=== PATIENT | female | born 1955 | race Caucasian/White ===

== ENCOUNTER → 2022-08-14 | Outpatient (CLI) | payer MEDICARE ==
[~2022-08-14] MED LIST: PRED20 PO
[2022-08-14 09:38] LABS: Source, Urine Clean Catch
[2022-08-14 12:12] LABS: Appearance, Urine Clear (Clear); Blood, Urine Neg (Neg); Glucose Qualitative, Urine Neg (Neg); Ketones, Urine Neg (Neg); Leukocyte Esterase, Urine 2+ (Neg); Nitrite, Urine Pos (Neg); Protein, Urine 1+ (Neg); Specific Gravity, Urine 1.015 (1.003-1.022); Urobilinogen, Urine 3+ (Normal); pH, Urine 6.5 (5.0-8.0)
[2022-08-14 12:23] LABS: Bilirubin, Urine 3+ (Neg); Color, Urine Orange (P-Yellow)
[2022-08-14 12:26] LABS: Bacteria Mod /hpf; Red Blood Cells, Urine 0-2 /hpf (0-2); Squamous Epithelial Cells Rare /hpf (Few); White Blood Cells, Urine 50-100 /hpf (0-5)
== END | disposition home or self-care (01) ==
LOC: LAB SHORT 09:36 → LAB 09:36 → EDSTATUS 08-07 16:40 → LAB FUT 08-07 16:40
PROVIDERS: Obstetrics & Gynecology Female Pelvic Medicine and Reconstructive Surgery
DX: N39.46 Mixed incontinence (principal)
CPT/HCPCS: 81001; 87086

== ENCOUNTER → 2023-05-20 | Outpatient (CLI) | payer MEDICARE ==
[2023-05-21 11:59] LABS: Stool Occult Bld Immuno 1 Negative (NEGATIVE)
== END ==
LOC: LAB 08:59 → LAB SHORT 08:59
PROVIDERS: Physician Assistant
DX: Z12.11 Encounter for screening for malignant neoplasm of colon (principal)
CPT/HCPCS: G0328